=== PATIENT | male | born 1975 ===

== ENCOUNTER → 2020-05-10 14:25 | Outpatient (BNVA) | payer OTHER, SELFPAY | PROVIDERS: PCP Family Medicine; Visit Provider Internal Medicine | DX: I97.89 Other postprocedural complications and disorders of the circulatory system, not elsewhere classified (principal); I44.2 Atrioventricular block, complete; I07.9 Rheumatic tricuspid valve disease, unspecified; F19.90 Other psychoactive substance use, unspecified, uncomplicated; Z95.4 Presence of other heart-valve replacement; Z98.890 Other specified postprocedural states; Z95.0 Presence of cardiac pacemaker | CPT/HCPCS: 93005; 99212 ==

== ENCOUNTER → 2020-06-26 13:07 | Outpatient (BNVA) | payer OTHER, SELFPAY | PROVIDERS: PCP Family Medicine; Visit Provider Internal Medicine | DX: Z45.018 Encounter for adjustment and management of other part of cardiac pacemaker (principal); I97.89 Other postprocedural complications and disorders of the circulatory system, not elsewhere classified; I44.2 Atrioventricular block, complete; I07.9 Rheumatic tricuspid valve disease, unspecified; F19.90 Other psychoactive substance use, unspecified, uncomplicated; Z98.890 Other specified postprocedural states; Z95.4 Presence of other heart-valve replacement | CPT/HCPCS: 99212 ==

== ENCOUNTER → 2020-08-20 08:15 | Outpatient (REF) | payer OTHER, SELFPAY ==
--- NOTE | 2020-08-20 08:25 | CA_ITS ---
Transthoracic Echocardiogram Patient (Last, First, Middle): Zach Gilbert, Gender: Male Date of : 1975 Age: 45 Procedure Date: 08/20/2020 Procedure Type: Transthoracic Echocardiogram Location: OP Height: 177.8 cm Weight: 72.12 kg BSA: 1.89 m2 Heart Rate: bpm BP: 100 / 52 mmHg Health Care Marketing Specialist: [facility] MD: Mark Shelley MD Symptoms: Z95.4 - Presence of other heart-valve replacement Study Quality: Good ECG Rhythm: Ventriculary paced rhythm Conclusions: - The left ventricular systolic function is low normal. The visually estimated ejection fraction is between 50-55%. - Mildly increased right ventricular cavity size. There is normal right ventricular systolic function. - A bioprosthetic tricuspid valve is present. The prosthetic tricuspid valve appears to be functioning normally. Findings Left Ventricle Normal left ventricular cavity size. There is normal left ventricular wall thickness. The left ventricular systolic function is low normal. The visually estimated ejection fraction is between 50-55%. There is paradoxical septal motion consistent with post-operative status and paradoxical septal motion consistent with a right ventricular pacemaker. Diastolic function is normal for age. Right Ventricle Mildly increased right ventricular cavity size. There is normal right ventricular systolic function. Atria Both atria are normal in size. Aortic Valve There is a normal trileaflet aortic valve. There is no aortic valve stenosis. There is no aortic valve regurgitation. Mitral Valve There is mild anterior mitral leaflet thickening. There is mild mitral valve regurgitation. There is no mitral valve stenosis. Pulmonic Valve The pulmonic valve was not well visualized. There is trace pulmonic valve regurgitation. Tricuspid Valve A bioprosthetic tricuspid valve is present. The prosthetic tricuspid valve appears to be functioning normally. Mean gradient across the tricuspid valve is 3.5 mm Hg at 60/min. Great Vessels The aortic annulus, sinuses of valsalva, and asc aorta are normal in size. Venous The inferior vena cava is normal in size and collapses greater than 50% with inspiration. Pericardium/Pleural There is no evidence of pericardial effusion. Prior Study Comparison No prior study available for comparison. Measurements 2D Linear Measurements RVIDd: 3.09 RVIDd Index: 1.63 IVSd: 0.84 0.6-0.9/0.6-1.0 cm LVIDd: 5.25 3.9-5.3/4.2-5.9 cm LVIDd Index: 2.78 2.4-3.2/2.2-3.1 cm/m2 LVIDs: 4.06 2.0-3.6 cm LVPWd: 0.99 0.7-1.1 cm Ao Root: 3.20 2.1-3.5 cm LA Diam: 3.60 2.7-3.8/3.0-4.0 cm LAIDs Index: 1.90 1.5-2.3 cm/m2 LV Mass: 218.44 67-162/88-224 g LV Mass Index: 115.58 43-95/49-115 g/m2 LVOT Diam: 2.20 3.0+(-)1.3 cm 2D Systolic Function EF 4C: 52.10 >55% EF 2C: 66.30 >55% EF BiP: 58.60 >55% Mitral Valve MV Pk E: 0.82 MV PK A: 0.45 MV Decel Time: 259.00 E/A: 1.80 E'Lateral: 11.50 E'Medial: 8.38 E/E' Med: 9.80 E/E' Lat: 7.20 Aortic Valve AoV Pk Don: 1.39 AoV Mn Don: 1.02 AoV VTI: 0.28 AoV Pk Grad: 8.00 Aov Mn Grad: 5.00 SAAD Cont.VTI: 3.16 LVOT LVOT Pk Don: 1.41 LVOT Mn Don: 0.78 LVOT VTI: 0.24 LVOT Pk Grad: 8.00 LVOT Mn Grad: 3.00 LVOT Diam: 2.20 LVOT Area: 3.80 Diastolic Function MV Pk E: 0.82 MV Pk A: 0.45 E/A: 1.80 E'Medial: 8.38 E/E' Med: 9.80 E' Laterial: 11.50 E/E' Lat: 7.20 Tricuspid Valve RA Press: 8.00 Great Vessels Aorta Ao Root-2D: 3.20 2.0-3.7 cm Ao Asc: 3.10 2.1-3.4 cm Ao Arch: 2.70 Updated in Other Vendor System with Status of Final Mark Shelley MD electronically signed on 08/21/2020 11:36:04 AM with status of Final
== END ==
LOC: HO.CARD 08:15
PROVIDERS: Visit Provider Internal Medicine
DX: Z95.4 Presence of other heart-valve replacement (principal); Z98.890 Other specified postprocedural states
CPT/HCPCS: 93306